=== PATIENT | male | born 2000 | race Caucasian/White ===

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

== ENCOUNTER 2019-05-26 04:55 | Emergency (ER) | payer MEDICAID ==
[~2019-05-26] VITALS: Ht 175.3 cm; Wt 77.1 kg
[2019-05-26 05:06] VITALS: BP 126/80; Ht 175.3 cm; Wt 77.1 kg
[2019-05-26 06:45] LABS: microscopic required? NO
[2019-05-26 07:51] LABS: UA SPECIFIC GRAVITY 1.015 (1.005-1.035); urine erythrocyte NEGATIVE (NEGATIVE)
== END 2019-05-26 06:34 | disposition home or self-care (01) ==
LOC: ED 04:55
PROVIDERS: Emergency Medicine
DX: N39.0 Urinary tract infection, site not specified (principal)
CPT/HCPCS: 87491; 87591

== ENCOUNTER 2019-06-03 14:17 | Emergency (ER) | payer MEDICAID ==
[~2019-06-03] VITALS: Ht 175.3 cm; Wt 74.4 kg
[2019-06-03 14:36] VITALS: Ht 175.3 cm; Wt 74.4 kg
[2019-06-03 14:57] VITALS: BP 113/75
== END 2019-06-03 14:57 | disposition home or self-care (01) ==
LOC: ED 14:17
DX: M72.2 Plantar fascial fibromatosis (principal)